=== PATIENT | female | born 1995 | race African-American/Black ===

== ENCOUNTER 2025-02-17 18:40 | Emergency (ER) | payer OTHER, MEDICAID, SELFPAY ==
--- NOTE | ~2025-02-17 | XR_ITS ---
CLINICAL HISTORY: chest pain 2 view chest x-ray Comparison: None provided Findings: The lungs are clear. Heart size is normal. No acute fracture. IMPRESSION: 1. No acute findings. This document has been electronically signed by: Soila Law MD on 02/17/2025 19:11:50
--- NOTE | 2025-02-17 18:42 | ECG_ITS ---
Test Reason : CHEST PAIN Blood Pressure : */* mmHG Vent. Rate : 81 BPM Atrial Rate : 81 BPM P-R Int : 176 ms QRS Dur : 72 ms QT Int : 350 ms P-R-T Axes : 39 8 -6 degrees QTcB Int : 406 ms Normal sinus rhythm Minimal voltage criteria for LVH, may be normal variant ( R in aVL ) Nonspecific T wave abnormality Abnormal ECG No previous ECGs available Referred By: Generic ED Physician Electronically Signed By: Hayes Olivera
[2025-02-17 18:50] VITALS: BP 169/93; PULSE 83; RESP 20; TEMP 36.6; O2SAT 100; BMI 33.5
--- NOTE | 2025-02-17 18:50 | ED.GENADULT ---
HPI - General Adult General Chief complaint: Chest Pain Stated complaint: Chest pain Time Seen by Provider: 02/17/25 23:21 Source: patient Limitations: no limitations History of Present Illness ED Provider: Елена Galindo PA-C HPI narrative: 29-year-old female presents with chest pain since earlier today. Patient states the pain is over central to upper left chest, described as tightness at times, she feels as if she can not take a deep breath. Patient states pain is worse with movement of torso. Patient denies strain to the chest wall, recent cough or cold symptoms, fever, new heavy lifting or exercise that could have precipitated her symptoms. The patient states she does lift her children. Related Data Allergies Allergy/AdvReac Type Severity Reaction Status Date / Time No Known Allergies Allergy Verified 02/17/25 18:50 Review of Systems Review of Systems: Yes all other systems are reviewed and are negative Constitutional: Constitutional: Denies fatigue and Denies fever(s) Cardiovascular: Cardiovascular: Reports chest pain and Denies dyspnea Respiratory: Respiratory: Denies cough and Denies dyspnea Gastrointestinal: Gastrointestinal: Denies abdominal pain, Denies nausea and Denies vomiting Endocrine: Endocrine: Denies fatigue [facility] Past Medical History Attestation statement: The following information was validated with the patient. Social History Social History Advance Directives: No Advance Directives Information Provided: No Physical Exam ED Vital Signs: Vital Signs - 24 hr 02/17/25 18:50 02/17/25 22:23 Temperature 97.9 F 98.1 F Pulse Rate 83 66 Respiratory Rate 20 16 Blood Pressure 169/93 H 128/61 Pulse Oximetry 100 98 Oxygen Delivery Method Room Air Room Air BMI result Body Mass Index 33.5 Const Other: Alert well-appearing Orientation/consciousness: patient oriented x3 Chest Other: Pain elicited central left upper chest wall with movement of torso but now with the palpation Resp Effort & Inspection: normal respiratory effort Cardio Other: Normal peripheral perfusion Skin Other: Warm dry no rash Neuro General: patient oriented x3, gait normal, no focal motor deficits and CN's II-XI intact bilaterally Psych Other: Cooperative Course Course Course Narrative: This is a rapid medical exam performed by Dionicio Duffy NP: Additional HPI, ROS, PE not included below will be deferred to primary provider. Patient is a 29-year-old female presenting with complaint of left anterior chest pain/tightness which began just prior to arrival. Pain worse with breathing. Came on suddenly when she was dropping her mother off at work. Not on OCPs, no known family history of blood clots. Plan: EKG, labs, CXR Medical Decision Making Medical Decision Making [facility] Narrative: 29-year-old female presents with chest pain since earlier today. Patient states the pain is over central to upper left chest, described as tightness at times, she feels as if she can not take a deep breath. Patient states pain is worse with movement of torso. Patient denies strain to the chest wall, recent cough or cold symptoms, fever, new heavy lifting or exercise that could have precipitated her symptoms. The patient states she does lift her children. No chronic issues History: Per patient I have considered the following differential diagnoses: ACS, chest wall strain, costochondritis, pneumonia, anxiety Plan: ACS was considered, screening labs including cardiac enzymes EKG and chest x-ray were ordered from triage, patient's discomfort is not consistent with ACS and she has no risk factors for coronary artery disease, her heart score is 0. She has not had preceding viral syndrome or other infectious symptoms to suggest costochondritis. She does have some mechanism of injury to suggest chest wall strain, she does lift her children, the pain is reproducible with movement of the torso. Thought about panic attack, although she denies anxiety. I have independently reviewed the following tests: Labs: No leukocytosis, not anemic, no electrolyte abnormality, not EKG: Normal sinus rhythm, rate 81, no ischemic changes no ectopy, QTC 406 Chest x-ray:Findings: The lungs are clear. Heart size is normal. No acute fracture. IMPRESSION: 1. No acute findings. Differential Diagnosis Differential Diagnoses: The differential diagnosis associated with the presentation includes See medical decision-making Admission/Observation Consideration of admission/observation: Escalation of care including admission/observation considered Not applicable Lab Data [facility] Lab Attestation statement: I reviewed the patient's lab results. 02/17/25 19:14 02/17/25 19:14 Labs: Lab Results 02/17/25 Range/Units 19:14 WBC 5.7 (4.8-10.8) X10*3/uL RBC 4.64 (4.20-5.50) X10*6/uL Hgb 12.1 (12.0-16.0) g/dl Hct 36.1 L (37.0-47.0) % MCV 77.8 L (80.0-98.0) fL MCH 26.1 L (27.0-33.0) pg MCHC 33.5 (31.0-35.0) g/dl RDW 14.6 (11.0-16.0) % Plt Count 208 (160-400) X10*3/uL MPV 11.8 (9.4-12.3) fL Immature Gran % (Auto) 0.2 (0.0-0.4) % Neut % (Auto) 56.0 (45-73) % Lymph % (Auto) 35.0 (20-40) % Chester % (Auto) 6.2 (2-11) % Eos % (Auto) 1.9 (0-4) % Baso % (Auto) 0.7 (0-2) % Lymph # (Auto) 2.0 (1.2-4.9) X10*3/uL Chester # (Auto) 0.4 (0.1-1.2) X10*3/uL Eos # (Auto) 0.1 (0.0-0.4) X10*3/uL Baso # (Auto) 0.0 (0.0-0.2) X10*3/uL Abs Immat Gran (auto) 0.01 (0.00-0.03) X10*3/uL Absolute Neuts (auto) 3.2 (2.0-8.3) x10*3/uL Absolute Nucleated RBC 0.000 (0.0-0.012) X10*3/uL Nucleated RBC % (auto) 0.0 (0.0-0.2) /100WBC PT 11.2 (10.9-12.4) SEC INR 1.0 (0.9-1.1) Sodium 140 (135-145) mmol/L Potassium 3.5 (3.3-5.1) mmol/L Chloride 108 (96-108) mmol/L Carbon Dioxide 24 (22-29) mmol/L Anion Gap 12 (12-20) BUN 10 (9-16) mg/dL Creatinine 0.82 (0.5-1.4) mg/dL Estim Creat Clear Calc 126.3 Estimated GFR > 60 Random Glucose 98 (60-115) mg/dL Calcium 9.5 (8.4-10.2) mg/dL Total Bilirubin 0.6 (0.0-1.0) mg/dL AST 25 (5-31) U/L ALT 35 H (0-31) U/L Alkaline Phosphatase 82 (39-117) U/L Troponin I High Sens < 2.7 (<3.5-17.0) ng/L Total Protein 8.4 H (6.5-8.0) g/dL Albumin 5.0 (3.5-5.0) g/dL Beta HCG, Quant 10 mIU/mL Independent Interpretation I performed an independent interpretation of an: EKG Radiology Impression Discussion of test interpretation with radiology: I have reviewed the radiologist's reading. Discharge Plan Discharge Clinical Impression: Chest wall pain Patient Disposition: Home, Self-Care Instructions: Chest Wall Pain (ED) Additional Instructions: Your symptoms are most consistent with chest wall strain. See home care instructions. All of your screening labs including a cardiac enzymes were normal, there were no concerning changes on the EKG in the chest x-ray is clear. Follow up with your primary care as needed. Stand Alone Forms: Work/School Release Print Language: Urdu
[2025-02-17 19:19] LABS: MANUAL DIFF FLAG NO
[2025-02-17 19:25] LABS: Hematocrit 36.1 % (37.0-47.0); Hemoglobin 12.1 g/dl (12.0-16.0); Imm Gran Abs Auto 0.01 X10*3/uL (0.00-0.03); Imm Gran Pct Auto 0.2 % (0.0-0.4); Lymphocytes Absolute Auto 2.0 X10*3/uL (1.2-4.9); Mean Corpuscular HGB Conc 33.5 g/dl (31.0-35.0); Mean Corpuscular Hemoglobin 26.1 pg (27.0-33.0); Mean Corpuscular Volume 77.8 fL (80.0-98.0); NRBC Abs Auto 0.000 X10*3/uL (0.0-0.012); NRBC Pct Auto 0.0 /100WBC (0.0-0.2); Platelet Count 208 X10*3/uL (160-400); Red Blood Count 4.64 X10*6/uL (4.20-5.50); White Blood Count 5.7 X10*3/uL (4.8-10.8)
[2025-02-17 19:29] LABS: INTERNATIONAL NORM RATIO 1.0 (0.9-1.1); Prothrombin Time 11.2 SEC (10.9-12.4)
[2025-02-17 19:40] LABS: Alanine Aminotransferase 35 U/L (0-31); Albumin Level 5.0 g/dL (3.5-5.0); Alkaline Phosphatase 82 U/L (39-117); Anion Gap 12 (12-20); Aspartate Amino Transferase 25 U/L (5-31); Blood Urea Nitrogen 10 mg/dL (9-16); Calcium 9.5 mg/dL (8.4-10.2); Carbon Dioxide 24 mmol/L (22-29); Chloride 108 mmol/L (96-108); Creatinine Clr Calc Pharmacy 126.3; Estimated Glomerular Filt Rate > 60; Potassium 3.5 mmol/L (3.3-5.1); Sodium 140 mmol/L (135-145); Total Protein 8.4 g/dL (6.5-8.0)
[2025-02-17 19:42] LABS: Troponin-I High Sensitivity < 2.7 ng/L (<3.5-17.0)
[2025-02-17 22:23] VITALS: BP 128/61; PULSE 66; RESP 16; TEMP 36.7; O2SAT 98
--- OUTSIDE RECORDS SUMMARY | 2025-02-17 22:57 | XMS_ITS | Encounter Summary ---
Author Organization [facility] Address [address] [place] [address] Care Team Providers Care Supervisor Spinning Name Role Phone RejiTejas Primary Care Provider [phone] Encounter Details Date Type Department Care Team (Late st Contact Info) Description 09/16/2021 [employer] Message [facility] [address] [place] [address] Mychart, Generic Provider [address] [place] [address] appts Social History Tobacco Use Types Packs/Day Years Used Date Smoking Tobacco: Never Assessed Comments Yes Sex and Gender Information Value Date Recorded Sex Assigned at Female 09/09/2021 11:03 AM EDT Legal Sex Female 2:05 PM EDT Gender Identity Female 09/09/2021 11:03 AM EDT Sexual Orientation Straight 09/09/2021 11 :03 AM EDT documented as of this encounter Plan of Treatment Not on file documented as of this encounter Visit Diagnoses Not on filedocumented in this encounter Care Teams Supervisor Spinning Relationship Specialty Start Date End Date Tejas Mendoza [address] [place] [address] PCP - General Internal Medicine 09/03/21 documented as of this encounter
--- OUTSIDE RECORDS SUMMARY | 2025-02-17 22:57 | XMS_ITS | Encounter Summary ---
Author Organization [facility] Address [address] [place] [address] Care Team Providers Care Air Battle Manager Name Role Phone RejiTejas Primary Care Provider [phone] Encounter Details Date Type Department Care Team (Late st Contact Info) Description 2021 [employer] Message Intial Department [address] [place] [address] Mychart, Generic Provider [address] [place] [phone] Questionnaire Submission Social History Tobacco Use Types Packs/Day Years Used Date Smoking Tobacco: Never Assessed Comments Unknown Sex and Gender Information Value Date Recorded Sex Assigned at Female 09/09/2021 11:03 AM EDT Legal Sex Female 2:05 PM EDT Gender Identity Female 09/09/2021 11:03 AM EDT Sexual Orientation Straight 09/09/2021 11 :03 AM EDT documented as of this encounter Plan of Treatment Not on file documented as of this encounter Visit Diagnoses Not on filedocumented in this encounter Care Teams Air Battle Manager Relationship Specialty Start Date End Date Tejas Mendoza [address] [place] [address] PCP - General Internal Medicine 09/03/21 documented as of this encounter
--- OUTSIDE RECORDS SUMMARY | 2025-02-17 22:57 | XMS_ITS | Encounter Summary ---
Author Organization [facility] Address [address] [place] [address] Care Team Providers Care Sweater Designer Name Role Phone Tejas Mendoza Primary Care Provider [phone] Encounter Details Date Type Department Care Team (Late st Contact Info) Description 06/07/2022 Telephone [facility] Central Scheduling Department [address] [place] [address] Telephone Intake, Staff Social History Tobacco Use Types Packs/Day Years Used Date Smoking Tobacco: Never Smokeless Tobacco: Never Comments No Sex and Gender Information Value Date Recorded Sex Assigned at Female 09/09/2021 11:03 AM EDT Legal Sex Female 2:05 PM EDT Gender Identity Female 09/09/2021 11:03 AM EDT Sexual Orientation Straight 09/09/2021 11 :03 AM EDT documented as of this encounter Miscellaneous Notes * Telephone Encounter - Miya Palm - 06/24/2022 3:24 PM EST Spoke with patient states she is all set no further calls needed * Telephone Encounter - Miya Palm - 06/17/2022 8:47 AM EST Spoke with patient gave verbal auth to release info, called [facility] for return call * Telephone Encounter - Amy Jhoana - 06/16/2022 1:59 PM EST Hi, questionnaire was sent and paper work needs to be sent over for pt statues on anemia. * Telephone Encounter - Tamanna Pepper - 06/07/2022 9:29 AM EST Calling in regards to a fax sent to the office, for questionnaire Please call back at [phone] ext [phone] documented in this encounter Plan of Treatment Not on file documented as of this encounter Goals Goal Patient Goal Type Associated Problems Recent Progress Patient-Stated? Author Reminders Care Plan MYC3 OB REMINDERS No Mychart, Background documented as of this encounter Visit Diagnoses Not on filedocumented in this encounter Additional Health Concerns Active Problems Noted Date Diagnosed Date MYC3 OB REMINDERS 09/22/2021 documented as of this encounter Care Teams Sweater Designer Relationship Specialty Start Date End Date Tejas Mendoza [address] [place] [address] PCP - General Internal Medicine 09/03/21 documented as of this encounter
--- OUTSIDE RECORDS SUMMARY | 2025-02-17 22:57 | XMS_ITS | Clinical Summary ---
Author Organization [facility] Address [address] [place] [address] Care Team Providers Care Marketing Operations Analyst Name Role Phone Tejas Mendoza Primary Care Provider Allergies No known active allergies Medications No known medications Active Problems Problem Noted Date Diagnosed Date Ventral hernia without obstruction or gangrene 0 08/02/2022 GDM (gestational diabetes mellitus) 04/07/2022 Poor growth affecting management of mother in second trimester 12/31/2021 Overview (03/02/2022): RESOLVED Maternal varicella, non-immune 10/08/2021 Grief at loss of child 09/22/2021 LGSIL of cervix of undetermined significance Overview (11/19/2021): LGSIL, plan: colpo WNL but not adequate, repeat pap/colpo High risk due to recurrent miscarriage 09/16/2021 Overview (03/30/2022): Provider: Ember Raya) Active problems: -Sickle cell trait with family history of sickle cell disease, saw genetics FOB tested negative for sickle, poss alpha thal - recurrent early miscarriage -grief, Declines counseling at this time, reminded availability of mcpap referral -G6PD -varicella non immune - marginal cord - FGR, Biometry consistent with growth restriction with AC <10%, efw 11% with increased umbilical doppler >97%, referred to genetics, weekly dopplers and efw 2-3 weeks. 2 subsequent EFW's normal. Sabino recommended continued weekly BPPs. Results review: Genetic screening low risk sequential Abnormal labs: GTT: GDM GBS: 03/17/2022 Tdap: given Rhogam:n/a Fluvax: declined Covid vaccine: complete 07/01 PPBCM: Declines Infant feeding plan: BF L&D Consent: 03/24 G6PD deficiency 09/15/2021 Overview (09/15/2021): Cross reference medications prior to prescribing. SENIOR VISUAL DESIGNER alert: avoid nitrofurantoin, pyridium, sulfonylureas (bactrim/clotrimazole hypothetically as well). Sickle cell trait 09/15/2021 Overview (12/31/2021): Son of sickle cell crisis. Sister with sickle cell disease and FOB sister sickle cell disease. Referral to genetics. Different FOB than her son: sickle cell neg Resolved Problems Problem Noted Date Diagnosed Date Resolved Date Gestational diabetes mellitu s (GDM) in third trimester 02/09/2022 04/08/2022 Overview (03/30/2022): Fasting 96-101 on days she is checking (missed several) today 128 because did not take NPH. Discussed risks of uncontrolled glucose. Postprandial not checking in the last week NPH 10 units QHS Immunizations Immunization Administration Dates Next Due Covid-19 Monovalent Vaccine, Moderna, mRNA, PF 0 06/25/2021,05/28/2021 Influenza, Injectable, Quadrivalent, Preservativ e Free 03/30/2022 Tetanus Toxoid, Reduced Diph theria Toxoid, and Acellular Pertussis Vaccine, Adsorbed 01/19/2022 Varicella Virus Vaccine 04/11/2022 Social History Tobacco Use Types Packs/Day Years Used Date Smoking Tobacco: Never Smokeless Tobacco: Never Tobacco Cessation:Counseling Given: Not Answered Comments No Sex and Gender Information Value Date Recorded Sex Assigned at Female 09/09/2021 11:03 AM EDT Legal Sex Female 2:05 PM EDT Gender Identity Female 09/09/2021 11:03 AM EDT Sexual Orientation Straight 09/09/2021 11 :03 AM EDT Last Filed Vital Signs Vital Sign Reading Time Taken Comments Blood Pressure 116/77 11/06/2022 4:02 PM EDT Pulse 64 11/06/2022 4:02 PM EDT Temperature 37.1 C (98.7 F) 11/06/2022 4:02 PM EDT Respiratory Rate 18 11/06/2022 4:02 PM EDT Oxygen Saturation 98% 11/06/2022 4:02 PM EDT Inhaled Oxygen Concentration - - Weight 98.3 kg (216 lb 12.8 oz) 10/28/2022 3:44 PM EDT Height 170.2 cm (5' 7 ) 07/09/2022 3:49 PM EST Body Mass Index 33.96 07/09/2022 3:49 PM EST Plan of Treatment Health Maintenance Due Date Last Done Comments Pneumococcal Vaccine: Pediat julita (0-5 Years) and At-Risk Patients (6-50 Years) (1 of 2 - PCV) 09/14/2015 Hepatitis B Vaccines (2 of 2 - CpG 2-dose series) 02/26/2021 01/29/2021 Alcohol/Substance Use Screening 05/30/2024 Depression Screening and Follow-Up 05/30/2024 Social Drivers of Health Jane ual Screening 05/30/2024 COVID-19 Vaccine ( - 2024- season) 2025, 05/28/2021 Influenza Vaccine (#1) 2025 03/30/2022 Pap Smear 05/27/2025 05/27/2022, 09/16/2021 DTaP,Tdap,and Td Vaccines (2 - Td or Tdap) 01/20/2032 01/19/2022 RSV Vaccine (60+ years old a nd patients) (1 - 1-dose 75+ series) 09/14/2071 HIV Screening Completed 10/07/2021, 08/28/2020 Hepatitis C Screening Completed 10/07/2021 Varicella Vaccines Completed 04/11/2022, 0 01/29/2021, 10/20/2020 Goals Goal Patient Goal Type Associated Problems Recent Progress Patient-Stated? Author Reminders Care Plan MYC3 OB REMINDERS No Mychart, Background Procedures * Due to [place] state law, this organization might not be sharing negative HIV tests. Procedure Name Priority Date/Time Associated Diagnosis Comments PAP Routine 05/27/2022 2:43 PM EST Cervical cancer screening HEPATITIS C ANTIBODY W/REFLEX TO HCV RNA, QUANTITATIVE PCR Routine 10/07/2021 4:43 PM EDT 10 weeks gestation of from Last 3 Months or Most Recently Relevant to Health Maintenance Results * Due to [place] state law, this organization might not be sharing negative HIV tests. * Pap (05/27/2022 2:43 PM EST) Specimen Adequacy Satisfactory for evaluation [facility] MANUAL 3 5:21 PM EST [facility] Pathologist Cytology Interpretation High grade squamous intraepithelial lesion. [facility] MANUAL 3 5:21 PM EST [facility] LABOR[facility]ORY at 1721 EST [facility] Coordinator Statement This Pap test was examined by the [facility], [employer], [place], [place]. This Pap test was examined in accordance with the [facility] Cytopathology Laboratory written policy, which incorporates all [place] mandates. Current screening guidelines can be found in [place]: A Cancer Journal for Clinicians 2020;70:321-346. Current ASCCP management guidelines for abnormal Pap tests are published in the Journal Lower Genital Tract Disease Volume 2020;24:102-131. [facility] MANUAL 3 5:21 PM EST [facility] Clinical History ROUTINE SCREENING [facility] MANUAL 3 5:21 PM EST [facility] Resulting Agency Case was signed out at [facility], Department of Pathology, [facility] CLIA [id number] [facility] MANUAL 3 5:21 PM EST [facility] Report Header Gynecologic Cytology Report Case: [id number] Authorizing Provider: Kamila Alonzo Collected: 05/27/2022 1443 Ordering Location: [facility] Received: 05/27/2022 1753 [facility] Obstetrics and Gynecology First Screen: Sue Mcelroy Pathologist: Lee Joyce MD Specimen: Screening ThinPrep Pap, Cervix/Endocervix 3 5:21 PM EST [facility] Brushing Cervix uteri structure / Unknown Non-Blood Collection / Unknown 05/27/2022 2:43 PM EST 05/27/2022 5:53 PM EST Kamila Soto LAB PATHOLOGY/CYTOLOGY ORDERABL ES Final Result [facility] ANAT[facility]IC PATHOLOGY LABORATORY [address] [place] [id number], * Hepatitis C Antibody w/Reflex to HCV RNA, Quantitative PCR (10/07/2021 4:43 PM EDT) Hepatitis C Antibody NON-REACT MARYBETH NON-REACT MARYBETH 10/08/2021 8:35 AM EDT [employer] [facility] Signal To Cut-Off 0.04 <1.00 10/08/2021 8:35 AM EDT [employer] Comment: HCV antibody was non-reactive. There is no laboratory evidence of HCV infection. In most cases, no further action is required. However, if recent HCV exposure is suspected, a test for HCV RNA (test code 61284) is suggested. For additional information please refer to http://education.[employer]/faq/BNN14j1 (This link is being provided for informational/ educational purposes only.) Blood Structure of peripheral vein / Unknown Venipuncture / Unknown 10/07/2021 4:43 PM EDT 10/07/2021 5:30 PM EDT Narrative [facility] - 10/08/2021 8:35 AM EDT [facility] Received Date: Tamanna Jarvis LAB BLOOD ORDERABLES Final Result [facility] [address] [place] [address] [address] Floor, [place] [address], [place] [phone] [employer] [address], [place] [address], [place] [phone] from Last 3 Months or Most Recently Relevant to Health Maintenance Additional Health Concerns Active Problems Noted Date Diagnosed Date MYC3 OB REMINDERS 09/22/2021 Insurance HSNO/FREE CARE [id number] Advance Directives * Full Code (Latest Code Status on File) Date Activated Date Inactivated Comments 04/08/2022 12:16 PM 04/11/2022 3:09 PM Care Teams Marketing Operations Analyst Relationship Specialty Start Date End Date Tejas Mendoza [address] [place] [address] PCP - General Internal Medicine 09/03/21
--- OUTSIDE RECORDS SUMMARY | 2025-02-17 22:57 | XMS_ITS | Clinical Summary ---
Author Organization [employer] Address [address] [facility] [address] [place] [address] Care Team Providers Care Equipment Manager Name Role Phone Unavailable Primary Care Provider Unavailabl e Allergies No known active allergies Medications acetaminophen (Tylenol) 500 MG tablet Take 1 tablet by mouth every 8 (eight) hours. 06/10/2020 Active ascorbic acid (Vitamin C) 500 MG tablet Take 500 mg by mouth. 04/11/2022 Active cholecalciferol (Vitamin D-3) 50 MCG (2000 UT) tablet Take 1 tablet by mouth at bed time. 08/18/2020 Active cyanocobalamin (Vitamin B-12) 1000 MCG tablet Take 1 tablet by mouth at bed time. 08/21/2019 Active ergocalciferol (Vitamin D-2) 1.25 MG (72510 UT) capsule take one capsule once weekly 08/02/2020 Active ferrous sulfate 325 (65 Fe) MG EC tablet Take 325 mg by mouth. 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 SHEETROCK APPLICATOR alert: avoid nitrofurantoin, pyridium, sulfonylureas (bactrim/clotrimazole hypothetically as well). Sickle cell trait 09/15/2021 Overview (09/19/2022): Son of sickle cell crisis. Sister with sickle cell disease and FOB sister sickle cell disease. Referral to genetics. Different FOB than her son: sickle cell neg Immunizations Immunization Administration Dates Next Due HepB-CpG 01/29/2021 Influenza injectable quadriv alent preservative free 03/30/2022 MMR 01/29/2021,10/20/2020 Tdap 01/19/2022 Varicella 04/11/2022,01/29/2021,10/20/2020 Social History Tobacco Use Types Packs/Day Years Used Date Smoking Tobacco: Never Assessed Comments Unknown Sex and Gender Information Value Date Recorded Sex Assigned at Female 03/30/2022 1:40 PM EDT Legal Sex Female 1:40 PM EDT Gender Identity Not on file Sexual Orientation Not on file Last Filed Vital Signs Vital Sign Reading Time Taken Comments Blood Pressure 129/79 01/29/2021 12:09 AM EDT Pulse 80 01/29/2021 12:09 AM EDT Temperature - - Respiratory Rate - - Oxygen Saturation - - Inhaled Oxygen Concentration - - Weight 80.7 kg (178 lb) 01/29/2021 12:09 AM EDT Height 172 cm (5' 7.72 ) 01/29/2021 12:09 AM EDT Body Mass Index 27.29 01/29/2021 12:09 AM EDT Plan of Treatment Health Maintenance Due Date Last Done Comments Depression Screening 1996 Disability Screening 1996 Alcohol/Substance Use Screening 2008 Tobacco Screening 2008 Family Planning (PISQ) 09/14/2011 HPV Vaccines (1 - 3-dose series) 09/14/2011 Pap Smear 2017 Hepatitis B Vaccines (2 of 2 - CpG 2-dose series) 02/26/2021 01/29/2021 COVID-19 Vaccine (3 - 2024-2 6 season) 2025 06/25/2021, 05/28/2021 Influenza Vaccine (#1) 2025 03/30/2022 DTaP/Tdap/Td Vaccines (2 - T d or Tdap) 01/20/2032 01/19/2022 Zoster Vaccines (1 of 2) 2046 RSV Patients and Patients Aged 60 years or older (1 - 1-dose 75+ series) 09/14/2071 HIB Vaccines Aged Out No longer eligi ble based on patient's age to complete this topic Hepatitis A Vaccines Aged Out No long er eligible based on patient's age to complete this topic IPV Vaccines Aged Out No longer eligi ble based on patient's age to complete this topic Meningococcal B Vaccine Aged Out No l onger eligible based on patient's age to complete this topic Meningococcal Vaccine Aged Out No raul sidney eligible based on patient's age to complete this topic Pneumococcal Vaccine: Pediatrics (0 to 5 Years) and At-Risk Patients (6 to 49) Years Aged Out No longer eligible b ased on patient's age to complete this topic RSV under 20 months Aged Out No longe r eligible based on patient's age to complete this topic Rotavirus Vaccines Aged Out No longer eligible based on patient's age to complete this topic
--- OUTSIDE RECORDS SUMMARY | 2025-02-17 22:57 | XMS_ITS | Clinical Summary ---
Author Organization [facility] Address [address] [place] [address] Care Team Providers Care Fellmongery Worker Name Role Phone Eboni Alcantara MD Primary Care Provider [phone] Immunizations Name Administration Dates Next Due Moderna SARS-CoV-2 COVID-19, mRNA, LNP-S, preservative free 06/25/2021,05/28/2021 Surgical History Surgery Date Site/Laterality Comments SECTION 2021 PROCEDURE: HISTORICAL DELIVERY; COMMENT: [facility] VAGINOSCOPY 10/28/2022 PROCEDURE: UT COLPOSCOPY CERVIX VAG LOOP ELTRD BX CERVIX; COMMENT: CATHI 2 Medical History Medical History Date Comments Abnormal Pap smear of cervix 09/2021 DX: Abnormal Pap smear of cervix; COMMENT: LSIL Obesity 08/18/2023 DX:Obesity; COMM ENT: bmi 35 Sickle cell trait ([facility]/H[facility] V24) DX:Sickle cell trait ([facility]) Umbilical hernia 08/30/2022 DX:Umbilical he rnia; COMMENT: imaging sent to scanning Abnormal Pap smear of cervix 05/27/2022 DX: Abnormal Pap smear of cervix; COMMENT: HSIL Family History Medical History Relation Name Comments Diabetes Father type 2 diabetes Hypertension Father No Known Problems Half-Brother x1 Diabetes Half-Sister 1 Other: Other Half-Sister 2 sickle cell di sease No Known Problems Half-Sister 3 Hypertension Mother Other: Other Son Relation Name Status Comments Father Alive Half-Brother x1 Alive Half-Sister 1 Alive Half-Sister 2 Alive Half-Sister 3 Alive Maternal Grandfather Maternal Grandmother Mother Alive Paternal Grandfather Paternal Grandmother Son Alive sickle cell disease in mosier Social History Tobacco Use Types Packs/Day Years Used Date Smoking Tobacco: Never Smokeless Tobacco: Never Alcohol Use Standard Drinks/Week Comments Never 0 (1 standard drink = 0.6 oz pur e alcohol) Comments Unknown Sex and Gender Information Value Date Recorded Sex Assigned at Not on file Legal Sex Female 3:52 PM EDT Gender Identity Not on file Sexual Orientation Not on file Obstetrics History Last Filed Vital Signs Vital Sign Reading Time Taken Comments Blood Pressure 113/78 01/02/2024 2:31 PM EDT Pulse 79 01/02/2024 2:31 PM EDT Temperature - - Respiratory Rate - - Oxygen Saturation - - Inhaled Oxygen Concentration - - Weight 98.8 kg (217 lb 14.4 oz) 01/02/2024 2:31 PM EDT Height 167.6 cm (5' 6 ) 01/02/2024 2:31 PM EDT Body Mass Index 35.17 01/02/2024 2:31 PM EDT Plan of Treatment Health Maintenance Due Date Last Done Comments Hepatitis B Vaccines (1 of 3 - 19+ 3-dose series) 09/14/2015 Pneumococcal Vaccine: Pediatrics (0 to 5 Years) and At-Risk Patients (6 to 49 Years) (1 of 2 - PCV) 09/14/2015 Cervical Cancer Screening: P ap Smear 2017 HIV Screening 08/17/2023 Hepatitis C Screening 08/17/2023 Social Influencers of Health Screening 08/17/2023 Depression Screening 05/30/2024 COVID-19 Vaccine (3 - 2024-2 6 season) 2025 06/25/2021, 05/28/2021 Influenza Vaccine (#1) 2025 DTaP,Tdap,and Td Vaccines (2 - Td or Tdap) 10/24/2033 10/25/2023 HIB Vaccines Aged Out No longer eligi ble based on patient's age to complete this topic HPV Vaccines Aged Out No longer eligi ble based on patient's age to complete this topic Hepatitis A Vaccines Aged Out No long er eligible based on patient's age to complete this topic IPV Vaccines Aged Out No longer eligi ble based on patient's age to complete this topic MMR Vaccines Aged Out No longer eligi ble based on patient's age to complete this topic Meningococcal ACWY Vaccine Aged Out N o longer eligible based on patient's age to complete this topic Meningococcal B Vaccine Aged Out No l onger eligible based on patient's age to complete this topic RSV Immunization Patients Under 20 months Aged Out No longer eligible b ased on patient's age to complete this topic Varicella Vaccines Aged Out No longer eligible based on patient's age to complete this topic Care Teams Fellmongery Worker Relationship Specialty Start Date End Date Eboni Alcantara MD [address] [place] [phone] PCP - General 12/30/23
--- NOTE | 2025-02-18 00:36 | PC.NURSE ---
Pt reviewed discharge instructions with pt, pt verbalized understanding, no sign of distress.
[2025-02-18 00:47] VITALS: BP 132/83; PULSE 68; RESP 20; TEMP 36.4; O2SAT 98
[2025-02-18 00:48] VITALS: BP 132/83; PULSE 68; RESP 20; TEMP 36.4; O2SAT 98
== END 2025-02-18 00:48 | disposition home or self-care (01) ==
PROVIDERS: Registered Nurse Emergency; Emergency Provider Emergency Medicine
DX: R07.89 Other chest pain (principal); R10.2 Pelvic and perineal pain; R07.1 Chest pain on breathing; R94.31 Abnormal electrocardiogram [ECG] [EKG]
CPT/HCPCS: 36415; 71046; 80053; 84484; 84702; 85025; 85610; 93005; 99283; 99285

== ENCOUNTER → 2025-02-17 18:42 | Outpatient (BNV) | payer OTHER, MEDICAID, SELFPAY | PROVIDERS: Emergency Provider Emergency Medicine; Visit Provider Internal Medicine Cardiovascular Disease | DX: R94.31 Abnormal electrocardiogram [ECG] [EKG] (principal); R07.89 Other chest pain | CPT/HCPCS: 93010 ==

== ENCOUNTER → 2025-02-17 18:52 | Outpatient (BNV) | payer OTHER, SELFPAY | PROVIDERS: Visit Provider Radiology Diagnostic Radiology | DX: R07.9 Chest pain, unspecified (principal) | CPT/HCPCS: 71046 ==